=== PATIENT | male | born 1955 | race Caucasian/White ===

== ENCOUNTER → 2020-11-11 | Outpatient (CLI) | payer BC, OTHER ==
[~2020-11-11] MED LIST: FUROSEMIDE 20MG/2ML VIAL (J1940) As Ordered ONE
--- NOTE | 2020-11-11 10:10 | REP ---
INDICATION: N13.30-UNSPECIFIED HYDRONEPHROSIS. COMPARISON: None. TECHNIQUE: 8.8 mCi of technetium 99 M Mag 3 is injected and posterior flow and excretory phase images are acquired. Renal cortical regions of interest 3rd drawn and time activity curves are plotted for renal function analysis. 20 mg of intravenous Lasix is administered and post Lasix renal agger fee is carried out. FINDINGS: Posterior flow study shows delayed perfusion of the left kidney and a drawn out bolus. Excretory phase images demonstrate markedly diminished and delayed excretory function of the left kidney compared to the right. There is no evidence of right-sided hydronephrosis. Tracer accumulation in the left kidney is very poor. Differential renal cortical function analysis is quite asymmetric with only 15% of renal cortical counts coming from the left kidney and 85 from the right. Time to peak activity is 2 minutes on the right and less than 2 minutes on the left. Time to half max activity is normal on the right at 8.6 minutes. The excretion curve is flat on the left and time to half max activity could not be calculated. Post Lasix renal agger fee demonstrates time to half Lasix activity for the right kidney is 26.7 minutes. Time to half max for the left kidney is incalculable. IMPRESSION: Extremely poor function left kidney with flat excretion curve. No demonstrable hydronephrosis. <Electronically signed by Reuben El > 11/11/20 1009
== END ==
LOC: M RAD 07:35
PROVIDERS: ATTEND Urology
DX: N13.30 Unspecified hydronephrosis (principal)
CPT/HCPCS: 78708; A9562; J1940